=== PATIENT | male | born 1980 | race American Indian/Alaskan Native ===

== ENCOUNTER 2017-09-17 22:07 | Emergency (ER) | payer MEDICAID ==
--- NOTE | 2017-09-17 22:42 | C.PDOC ---
History Of Present Illness <Thierry Mohan - Last Filed: 09/18/17 05:26> <Yajaira Lutz - Last Filed: 09/18/17 18:48> 37 year old male presents to the ED for evaluation of anxiety and paranoid ideation. Patient states he has been feeling stressed for the past few days, he does not feel right states his blood pressure is elevated. Patient states he feel overwhelmed with everything going on around him at this time. As per Police report, patient presented to the police department stating he was being followed and admitted to drinking and smoking weed today. While in the ED patient denies drug use, alcohol use. Patient denies SI/HI, hallucinations, SOB , CP, recent injury, fall, trauma. (Yajaira Lutz) <Thierry Mohan - Last Filed: 09/18/17 05:26> History Per: Patient, Other (Police) History/Exam Limitations: other (Anxiety) Onset/Duration Of Symptoms: Hrs Current Symptoms Are (Timing): Still Present Suicide/Self Injury Attempted (Context): None Modifying Factor(s): Marijuana Associated Symptoms: Anxiety, Paranoia. denies: Depression, Suicidal Thoughts, Suicidal Plan Involuntary Hold By: None Recent travel outside of the [place]: No Additional History Per: Patient, Law Enforcement <Yajaira Lutz - Last Filed: 09/18/17 18:48> Chief Complaint (Nursing): Substance Abuse Past Medical History Reviewed: Historical Data, Nursing Documentation, Vital Signs - Medical History PMH: Bronchitis Surgical History: No Surg Hx Family History: States: Unknown Family Hx - Social History Hx Alcohol Use: Yes Hx Substance Use: Yes - Immunization History Hx Tetanus Toxoid Vaccination: No Hx Influenza Vaccination: No Hx Pneumococcal Vaccination: No <Yajaira Lutz - Last Filed: 09/18/17 18:48> Vital Signs: Last Vital Signs Temp 98 F 09/18/17 05:34 Pulse 98 H 09/18/17 05:34 Resp 16 09/18/17 05:34 BP 150/90 09/18/17 05:34 Pulse Ox 98 09/18/17 05:34 Review Of Systems Constitutional: Negative for: Fever, Chills Cardiovascular: Negative for: Chest Pain, Palpitations Respiratory: Negative for: Cough, Shortness of Breath Gastrointestinal: Negative for: Abdominal Pain Skin: Negative for: Rash Neurological: Negative for: Weakness, Numbness Psych: Positive for: Anxiety, Psychosis. Negative for: Depression <Yajaira Lutz - Last Filed: 09/18/17 18:48> Physical Exam - Physical Exam Appears: Non-toxic, Other (Anxious) Skin: Normal Color, Warm, Dry Head: Atraumatic, Normacephalic Eye(s): bilateral: Normal Inspection Nose: No Discharge, No Deformity Oral Mucosa: Moist Neck: Normal ROM, Supple Chest: Symmetrical Cardiovascular: Rhythm Regular, No Murmur Respiratory: Normal Breath Sounds, No Rales, No Rhonchi, No Wheezing Gastrointestinal/Abdominal: Soft, No Tenderness, No Guarding, No Rebound Extremity: Normal ROM, No Pedal Edema, No Calf Tenderness, No Deformity, No Swelling Neurological/Psych: Oriented x3, Normal Speech, Normal Cognition Gait: Steady <Yajaira Lutz - Last Filed: 09/18/17 18:48> ED Course And Treatment - Laboratory Results Result Diagrams: 09/17/17 23:34 09/17/17 23:34 <Thierry Mohan - Last Filed: 09/18/17 05:26> - Laboratory Results Result Diagrams: 09/17/17 23:34 09/17/17 23:34 O2 Sat by Pulse Oximetry: 97 (On RA) Pulse Ox Interpretation: Normal <Yajaira Lutz - Last Filed: 09/18/17 18:48> Medical Decision Making <Thierry Mohan - Last Filed: 09/18/17 05:26> <Yajaira Lutz - Last Filed: 09/18/17 18:48> Medical Decision Making: Patient seem by crisis and cleared to be d/c home (Thierry Mohan) Impression : anxiety, paranoia Plan: * Labs * UA (Yajaira Lutz) Disposition Counseled Patient/Family Regarding: Diagnosis - Disposition Disposition Time: 05:25 - POA Present On Arrival: None <Thierry Mohan - Last Filed: 09/18/17 05:26> <Yajaira Lutz - Last Filed: 09/18/17 18:48> - Disposition Referrals: ED Physician, [Primary Care Provider] - [facility] [Outside] Disposition: HOME/ ROUTINE Condition: STABLE Instructions: Polysubstance Abuse (ED) Forms: [facility] (Iranian) - Clinical Impression Clinical Impression: Drug-induced psychotic disorder <Thierry Mohan - Last Filed: 09/18/17 05:26> - Scribe Statement The provider has reviewed the documentation as recorded by the Scribe <Yajaira Lutz - Last Filed: 09/18/17 18:48> - Scribe Statement Celestine Bourgeois All medical record entries made by the Scribe were at my direction and personally dictated by me. I have reviewed the chart and agree that the record accurately reflects my personal performance of the history, physical exam, medical decision making, and the department course for this patient. I have also personally directed, reviewed, and agree with the discharge instructions and disposition. (Yajaira Lutz)
[2017-09-17 23:38] LABS: BASO # 0.1 K/uL (0.0-0.2); BASO % 1.3 % (0.0-2.0); EOS # 0.1 K/uL (0.0-0.7); EOS % 1.1 % (0.0-4.0); HEMOGLOBIN 14.4 g/dL (12.0-18.0); LYMPH # 2.7 K/uL (1.0-4.3); LYMPH % 50.7 % (20.0-40.0); MEAN CELL VOLUME 71.2 fL (80.0-94.0); MEAN CORPUSCULAR HEMOGLOBIN 23.4 pg (27.0-31.0); MEAN CORPUSCULAR HGB CONC 32.9 g/dL (33.0-37.0); MEAN PLATELET VOLUME 8.1 fL (7.2-11.7); MONO # 0.6 K/uL (0.0-0.8); MONO % 11.4 % (0.0-10.0); NEUT # 1.9 K/uL (1.8-7.0); NEUT % 35.5 % (50.0-75.0); NRBC % 0.1 % (0.0-2.0); RBC 6.16 Mil/uL (4.40-5.90); RED CELL DISTRIBUTION WIDTH 15.5 % (11.5-14.5); WHITE BLOOD COUNT 5.3 K/uL (4.8-10.8)
[2017-09-17 23:49] LABS: ACETAMINOPHEN < 10.0 ug/mL (10.0-30.0); SALICYLATE < 1.0 mg/dL 1
[2017-09-17 23:51] LABS: ALB/GLOB RATIO 1.4 (1.0-2.1); ALBUMIN 4.2 g/dL (3.5-5.0); ALT/SGPT 35 U/L (21-72); AST/SGOT 31 U/L (17-59); BLOOD UREA NITROGEN 12 mg/dL (9-20); CALCIUM 9.3 mg/dl (8.6-10.4); GFR AFRICAN-AMERICAN > 60; GFR NON-AFRICAN AMERICAN > 60
[2017-09-18 00:47] LABS: URINE BILIRUBIN NEGATIVE (NEGATIVE); URINE BLOOD NEGATIVE (NEGATIVE); URINE CLARITY Clear (Clear); URINE COLOR Yellow (YELLOW); URINE GLUCOSE (UA) NORMAL (Normal); URINE LEUKOCYTE ESTERASE NEG Leu/uL (Negative); URINE NITRATE NEGATIVE (NEGATIVE); URINE PROTEIN NEGATIVE (NEGATIVE); URINE UROBILINOGEN NORMAL mg/dL (0.2-1.0)
[2017-09-18 00:59] LABS: BARBITURATES, UR NEGATIVE (NEGATIVE); BENZODIAZEPINES, UR NEGATIVE (NEGATIVE); OPIATES, UR NEGATIVE (NEGATIVE); PHENCYCLIDINE, UR NEGATIVE (NEGATIVE)
[2017-09-18 05:35] VITALS: BP 150/90; PULSE 98; RESP 16; TEMP 98
[2017-09-18 18:49] VITALS: O2SAT 97
== END 2017-09-18 05:34 | disposition home or self-care (01) ==
LOC: C.ER 22:07
DX: F19.959 Other psychoactive substance use, unspecified with psychoactive substance-induced psychotic disorder, unspecified (principal)